=== PATIENT | male | born 1980 | race Caucasian/White ===

== ENCOUNTER 2018-02-19 14:50 | Emergency (ER) | payer OTHER, SELFPAY ==
[2018-02-19 14:51] VITALS: BP 161/112; PULSE 78; RESP 20; TEMP 37; O2SAT 99; BMI 22.5
[2018-02-19 15:32] VITALS: BP 150/106; PULSE 66; RESP 13; O2SAT 100
--- NOTE | 2018-02-19 15:37 | DI.RAD.S_ITS ---
PROCEDURE: XR CHEST 2V INDICATIONS: chest pain TECHNIQUE: 2 views of the chest were acquired. COMPARISON: [facility], , CHEST 2 VIEW, 03/29/2017, 9:46. FINDINGS: Surgical changes and devices: None. Lungs and pleura: No pleural effusions or pneumothorax. Lungs are clear. Mediastinum: Mediastinal contours are normal. Heart size is normal. Bones and chest wall: No suspicious bony abnormalities. Soft tissues appear unremarkable. IMPRESSION: Negative chest. No acute cardiopulmonary process is evident. Dictated by: Jay Mcfarland M.D. on 02/19/2018 at 15:42 Approved by: Jay Mcfarland M.D. on 02/19/2018 at 16:11
--- NOTE | 2018-02-19 15:42 | ED.CHESTPAIN ---
HPI - Chest Pain General Chief Complaint: Chest Pain Stated Complaint: tightness in chest for over a week,sent by walk in Time Seen by Provider: 02/19/18 15:22 Source: patient Mode of arrival: ambulatory Limitations: no limitations History of Present Illness HPI narrative: Patient is a 37-year-old male who presents with chest discomfort. It has been ongoing for about a week. He does feel better while laying down and worse while sitting up but is not immediate pain. He did have a chest cold about week ago. He denies any fever or productive cough. He denies shortness of breath. He actually had a couple workup of his heart twice in the past once when was 17 on again in his 20s. In his 20 he had an echocardiogram it was thought that he may have had pericarditis however no true diagnosis was ever made he has not had any issues since. MD complaint: chest pain Related Data Previous Rx's Medication Instructions Recorded naproxen 500 mg PO BID PRN #30 tab 02/19/18 Allergies Allergy/AdvReac Type Severity Reaction Status Date / Time No Known Allergies Allergy Uncoded 06/19/17 13:10 Review of Systems Review of Systems GENERAL: Denies chills, fatigue, malaise, fever, sweats, travel HEENT: Denies sinus pain, ear pain, sore throat, difficulty swallowing, neck pain RESPIRATORY: Denies dyspnea, cough, wheezing, hemoptysis, sputum. CARDIOVASCULAR: Denies chest pain, palpitations, orthopnea, edema GASTROINTESTINAL: See HPI : Denies dysuria, frequency, incontinence, hematuria, urinary retention, flank pain. MUSCULOSKELETAL: Denies weakness, joint pain, or bony pain SKIN: No rash, no erythema, no pruritus NEUROLOGIC: Denies weakness, dizziness, headache, numbness, change in speech, confusion PSYCHIATRIC: No concerning psychosocial issues. 12 point review of systems is negative except for those stated above and HPI PFSH Medical History Healthy adult (Acute) Family History Father Age: 61 Aortic aneurysm Heart disease Hypertension Social History Smoking Status: Never smoker Comment: Very active marathons Exam Initial Vital Signs Initial Vital Signs: Vital Signs Temperature 98.6 F 02/19/18 14:51 Pulse Rate 78 02/19/18 14:51 Respiratory Rate 20 02/19/18 14:51 Blood Pressure 161/112 H 02/19/18 14:51 Pulse Oximetry 99 02/19/18 14:51 GENERAL: Tall healthy well-appearing and in [no acute] distress. HEENT: Head atraumatic,EOMI, pupils reactive, neck is supple no meningeal sign CARDIOVASCULAR: Regular rate and rhythm without murmurs, rubs or gallops. RESPIRATORY: Breath sounds equal bilaterally, no wheezes rales or rhonchi. ABDOMEN: Soft, nontender. Normoactive bowel sounds all 4 quadrants. No guarding or rebound. : No CVA tenderness EXTREMITIES: Normal range of motion, no clubbing or edema. Neurovascularly intact NEUROLOGICAL: Alert and oriented x4.Normal gait and speech. Cranial nerves II through XII grossly intact. SKIN: Warm, dry, no laceration, no petechiae, no rashes or lesions. Course Orders Ordered: ED Orders 02/19/18 15:03 EKG-12 Lead Stat 02/19/18 15:37 XR chest 2V Stat 02/19/18 15:51 Complete Blood Count AUTO DIFF Stat Comprehensive Metabolic Panel Stat Lipase Stat Troponin & CK Cardiac Panel Stat Discontinued Medications Ketorolac Tromethamine (Toradol) 30 mg IV NOW ONE Stop: 02/19/18 15:37 Last Admin: 02/19/18 16:08 Dose: 30 mg Vital Signs - 8 hr 02/19/18 14:51 02/19/18 15:32 02/19/18 16:04 Temperature 98.6 F Pulse Rate 78 66 70 Respiratory Rate 20 13 8 L Blood Pressure 161/112 H Blood Pressure [Right Arm] 150/106 H 141/98 H Pulse Oximetry 99 100 97 02/19/18 16:30 02/19/18 17:14 Temperature Pulse Rate 73 72 Respiratory Rate 16 16 Blood Pressure Blood Pressure [Right Arm] 116/91 H 130/102 H Pulse Oximetry 96 97 MDM - Chest Pain Lab Data Attestation: I reviewed the patient's lab results. Result diagrams: 02/19/18 15:51 02/19/18 15:51 Lab Results 02/19/18 02/19/18 Range/Units 15:51 15:51 WBC 5.2 (4.5-11.0) X10^3/uL RBC 4.86 (4.5-5.9) X10^6/uL Hgb 15.2 (13.5-17.5) g/dL Hct 43.2 (41-53) % MCV 88.8 (80-100) fL MCH 31.2 (26-34) PG MCHC 35.2 (30-36) % RDW 13.0 (11.6-14.8) % Plt Count 258 (150-400) X10^3/uL Neut % (Auto) 54.9 (50-75) % Lymph % (Auto) 36.2 (25-40) % [place] % (Auto) 7.5 (3-14) % Eos % (Auto) 0.5 L (2-4) % Baso % (Auto) 0.9 (0-2) % Neut # (Auto) 2900 L (2824-6764) /uL Sodium 146 H (137-145) mmol/L Potassium 3.9 (3.4-5.1) mmol/L Chloride 104 (98-107) mmol/L Carbon Dioxide 27 (22-32) mmol/L BUN 14 (9-20) mg/dL Creatinine 0.60 L (0.66-1.25) mg/dL Estimated GFR > 60.0 (>60) mL/min BUN/Creatinine Ratio 23.3 H (6-22) Glucose 109 H (70-100) mg/dL Calcium 9.5 (8.4-10.2) mg/dL Total Bilirubin 0.4 (0.2-1.3) mg/dL AST 34 (17-59) IU/L ALT 41 (21-72) IU/L Alkaline Phosphatase 59 (38-126) U/L Total Creatine Kinase 71 (55-170) U/L CK-MB (CK-2) TNP CK-MB (CK-2) Rel Index TNP Troponin I < 0.012 (0.01-0.034) ng/mL Total Protein 8.3 H (6.3-8.2) g/dL Albumin 4.9 (3.5-5.0) g/dL Globulin 3.4 (1.7-4.1) g/dL Albumin/Globulin Ratio 1.4 (1.0-2.8) Lipase 131 (23-300) U/L Imaging Data Chest x-ray: Radiologist's impression: PROCEDURE: XR CHEST 2V INDICATIONS: chest pain TECHNIQUE: 2 views of the chest were acquired. COMPARISON: [facility], , CHEST 2 VIEW, 03/29/2017, 9:46. FINDINGS: Surgical changes and devices: None. Lungs and pleura: No pleural effusions or pneumothorax. Lungs are clear. Mediastinum: Mediastinal contours are normal. Heart size is normal. Bones and chest wall: No suspicious bony abnormalities. Soft tissues appear unremarkable. IMPRESSION: Negative chest. No acute cardiopulmonary process is evident. Dictated by: Jay Mcfarland M.D. on 02/19/2018 at 15:42 ECG Data Attestation: I personally reviewed and interpreted this ECG as follows: Prior ECG tracings: not available for review Interpretation: Normal sinus rhythm rate 64 no P are depression no ST changes QRS 98 TX interval 152 MDM Narrative Medical decision making narrative: I did a bedside ultrasound no evidence pericardial effusion. Patient is better after Toradol. This may be more of an inflammatory process such as mild pericarditis or costochondritis. Possibly pleurisy as well. I recommended to patient that he take naproxen for anti-inflammatory 5 twice a day for the next 7 days. He may also require further cardiac evaluation by his PCP. Discharge Plan Departure Patient Disposition: Home Clinical Impression: Atypical chest pain Instructions: Pericarditis -- Adult, DI for Atypical Chest Pain Activity Restrictions/Additional Instructions: *You have been diagnosed with atypical chest pain *What to do: A symptoms concerning for pericarditis or costochondritis. Both inflammatory processes. *Continue to take medications as directed Naproxen 500 mg twice a day with food for 7 days *Follow up with your primary care provider in 2-3 days *Return to ER if you should have increasing pain and shortness of breath, passing out or any new, worsening or concerning symptoms Prescriptions: New naproxen 500 mg tablet 500 mg PO BID PRN (Reason: pain) Qty: 30 RF: 0 Referrals: Tamara Guzman MD [Primary Care Provider] -
[2018-02-19 16:04] VITALS: BP 141/98; PULSE 70; RESP 8; O2SAT 97
[2018-02-19 16:06] LABS: Add Manual Diff / Slide Review NO; Basophils Percent Auto 0.9 % (0-2); Eosinophils Percent Auto 0.5 % (2-4); Hematocrit 43.2 % (41-53); Hemoglobin 15.2 g/dL (13.5-17.5); Lymphocytes Percent Auto 36.2 % (25-40); Mean Corpuscular HGB Conc 35.2 % (30-36); Mean Corpuscular Hemoglobin 31.2 PG (26-34); Mean Corpuscular Volume 88.8 fL (80-100); Monocytes Percent Auto 7.5 % (3-14); Neutrophils Absolute Auto 2900 /uL (3000-5900); Neutrophils Percent Auto 54.9 % (50-75); Platelet Count 258 X10^3/uL (150-400); Red Blood Cell Count 4.86 X10^6/uL (4.5-5.9); White Blood Cell Count 5.2 X10^3/uL (4.5-11.0)
[2018-02-19] MEDS: KETOROLAC 60 MG/2 ML VIAL 30 MG IV (16:08)
[2018-02-19 16:16] LABS: Alanine Aminotransferase 41 IU/L (21-72); Albumin 4.9 g/dL (3.5-5.0); Albumin Globulin Ratio 1.4 (1.0-2.8); Alkaline Phosphatase 59 U/L (38-126); Aspartate Aminotransferase 34 IU/L (17-59); BUN Creatinine Ratio 23.3 (6-22); Bilirubin Total 0.4 mg/dL (0.2-1.3); Blood Urea Nitrogen 14 mg/dL (9-20); Calcium 9.5 mg/dL (8.4-10.2); Carbon Dioxide 27 mmol/L (22-32); Chloride 104 mmol/L (98-107); Creatine Kinase 71 U/L (55-170); Estimated Glomerular Filt Rate > 60.0 mL/min (>60); Globulin 3.4 g/dL (1.7-4.1); Glucose 109 mg/dL (70-100); HEMOLYSIS 32 (0-50); Lipase 131 U/L (23-300); Potassium 3.9 mmol/L (3.4-5.1); Sodium 146 mmol/L (137-145); Total Protein 8.3 g/dL (6.3-8.2)
[2018-02-19 16:28] LABS: Troponin I < 0.012 ng/mL (0.01-0.034)
[2018-02-19 16:30] VITALS: BP 116/91; PULSE 73; RESP 16; O2SAT 96
[2018-02-19 17:14] VITALS: BP 130/102; PULSE 72; RESP 16; O2SAT 97
== END 2018-02-19 17:42 | disposition home or self-care (01) ==
PROVIDERS: Emergency Provider Emergency Medicine; Family Provider Family Medicine; PCP Family Medicine
DX: R07.89 Other chest pain (principal)
CPT/HCPCS: 36591; 71046; 80053; 82550; 83690; 84484; 85025; 93005; 93010; 96374; 99283; 99285; J1885

== ENCOUNTER → 2022-02-08 10:27 | Outpatient (CLI) | payer OTHER, SELFPAY ==
[2022-02-08 12:49] LABS: Add Manual Diff / Slide Review NO; Basophils Absolute Auto 0 /uL (0-100); Basophils Percent Auto 0.6 % (0-2); Eosinophils Absolute Auto 0 /uL (0-450); Eosinophils Percent Auto 0.4 % (2-4); Hematocrit 46.2 % (41-53); Hemoglobin 15.2 g/dL (13.5-17.5); Lymphocytes Absolute Auto 2400 /uL (1100-4500); Lymphocytes Percent Auto 40.1 % (25-40); Mean Corpuscular Hemoglobin 30.4 PG (26-34); Monocytes Absolute Auto 600 /uL (0-900); Monocytes Percent Auto 10.4 % (3-14); Neutrophils Absolute Auto 2900 /uL (1500-7000); Neutrophils Percent Auto 48.5 % (50-75); Platelet Count 271 X10^3/uL (150-400); Red Blood Cell Count 5.02 X10^6/uL (4.5-5.9); White Blood Cell Count 5.9 X10^3/uL (4.5-11.0)
[2022-02-08 13:10] LABS: Erythrocyte Sedimentation Rate 2 MM/HR (0-15)
[2022-02-08 14:02] LABS: Alanine Aminotransferase 74 IU/L (<50); Albumin 4.9 g/dL (3.5-5.0); Albumin Globulin Ratio 1.5 (1.0-2.8); Alkaline Phosphatase 71 U/L (38-126); Aspartate Aminotransferase 38 IU/L (17-59); BUN Creatinine Ratio 18.1 (6-22); Bilirubin Total 0.7 mg/dL (0.2-1.3); Blood Urea Nitrogen 13 mg/dL (9-20); Calcium 9.6 mg/dL (8.4-10.2); Carbon Dioxide 30 mmol/L (22-32); Chloride 103 mmol/L (98-107); Estimated Glomerular Filt Rate > 60 mL/min (>60); Globulin 3.2 g/dL (1.7-4.1); Glucose 92 mg/dL (70-100); HEMOLYSIS < 15 (0-50); Potassium 4.4 mmol/L (3.4-5.1); Sodium 142 mmol/L (137-145); Total Protein 8.1 g/dL (6.3-8.2)
== END ==
PROVIDERS: Family Provider Family Medicine; PCP Family Medicine; Referring Provider Physician Assistant; Visit Provider Physician Assistant
DX: K59.00 Constipation, unspecified (principal); K62.89 Other specified diseases of anus and rectum; R19.4 Change in bowel habit
CPT/HCPCS: 36415; 80053; 84443; 85025; 85651